=== PATIENT | male | born 1955 | race Caucasian/White ===

== ENCOUNTER 2023-09-24 13:33 | Emergency (ER) | payer SELFPAY ==
[~2023-09-24] VITALS: Ht 170.2 cm; Wt 81.7 kg
[2023-09-24] MEDS ORDERED: Lactated Ringer's 1,000 ML IV ONE (16:05)
[2023-09-24 16:07] LABS: BASOPHILS ABSOLUTE AUTO 0.08 K/mm3 (0.00-0.23); BASOPHILS PERCENT AUTO 1 % (0-2); EOSINOPHILS ABSOLUTE AUTO 0.01 K/mm3 (0.00-0.68); EOSINOPHILS PERCENT AUTO 0 % (0-6); Hematocrit 49.4 % (37.0-53.0); Hemoglobin 17.8 g/dL (13.5-17.5); IMMATURE GRAN ABSOLUTE AUTO 0.21 K/mm3 (0.00-0.10); IMMATURE GRAN PERCENT AUTO 1 % (0-1); LYMPHOCYTES ABSOLUTE AUTO 1.89 K/mm3 (0.84-5.20); LYMPHOCYTES PERCENT AUTO 12 % (21-46); MONOCYTES ABSOLUTE AUTO 0.65 K/mm3 (0.16-1.47); MONOCYTES PERCENT AUTO 4 % (4-13); Mean Corpuscular HGB 31.9 pg (26.0-34.0); Mean Corpuscular Volume 89 fL (80-100); Mean Platelet Volume 11.4 fL (9.1-12.4); NEUTROPHILS PERCENT AUTO 82 % (41-73); Platelet Count 322 K/mm3 (150-400); RDW Coefficient Variation 13.3 % (11.7-14.2); Red Blood Cell Count 5.58 M/mm3 (4.30-5.90); White Blood Cell Count 15.44 K/mm3 (4.00-11.30)
[2023-09-24 16:23] LABS: Albumin/Globulin Ratio 1.1 (0.8-1.8); Bilirubin, Total 0.8 mg/dL (0.1-1.0); Bun/Creatinine Ratio 22.6 (12.0-20.0); Calcium, Blood 9.4 mg/dL (8.5-10.1); Creatinine, Blood 0.71 mg/dL (0.60-1.20); Globulin, Blood 3.7 g/dL (2.2-4.0); Magnesium, Blood 2.1 mg/dL (1.6-2.4); Potassium, Blood 4.2 mmol/L (3.5-5.5); Total Protein, Blood 7.7 g/dL (6.4-8.2)
[2023-09-24 16:52] LABS: Influenza A, PCR NEGATIVE (NEGATIVE); Influenza B, PCR NEGATIVE (NEGATIVE); Resp Syncytial Virus, PCR NEGATIVE (NEGATIVE); SARS-Cov-2 (COVID-19) PCR, MMC NEGATIVE (NEGATIVE)
[2023-09-24 17:51] LABS: Source, Urine Clean Catch
[2023-09-24 18:06] LABS: Appearance, Urine Clear (Clear); Bilirubin, Urine Neg (Neg); Blood, Urine Neg (Neg); Color, Urine Yellow (P-Yellow); Glucose Qualitative, Urine 4+ (Neg); Ketones, Urine 4+ (Neg); Leukocyte Esterase, Urine Neg (Neg); Nitrite, Urine Neg (Neg); Protein, Urine 1+ (Neg); Specific Gravity, Urine 1.015 (1.003-1.022); Urobilinogen, Urine NORM (Normal); pH, Urine 6.5 (5.0-8.0)
[2023-09-24] MEDS ORDERED: Sodium Chloride 3% 500 ML IV ONE (19:40)
== END 2023-09-24 20:18 | disposition short-term general hospital (02) ==
LOC: ER 13:33
PROVIDERS: Physician Assistant
DX: I63.22 Cerebral infarction due to unspecified occlusion or stenosis of basilar artery (principal); I63.213 Cerebral infarction due to unspecified occlusion or stenosis of bilateral vertebral arteries; I63.232 Cerebral infarction due to unspecified occlusion or stenosis of left carotid arteries
CPT/HCPCS: 0241U; 70450; 70496; 70498; 71046; 80053; 83735; 85025; J7120; Q9967